=== PATIENT | male | born 1980 | race Caucasian/White ===

== ENCOUNTER 2017-12-19 17:03 | Emergency (ER) | payer MEDICAID ==
[2017-12-19 17:33] LABS: ADD MAN DIFF? NO
[2017-12-19 17:35] LABS: BASOPHIL # 0.1 10^3/ul (0.0-0.1); BASOPHILS % 1.1 % (0.0-2.0); EOSINOPHILS # 0.5 10^3/ul (0.0-0.5); EOSINOPHILS % 7.1 % (0.0-7.0); HEMATOCRIT 41.6 % (42.0-52.0); LYMPHOCYTES % 30.6 % (15.0-51.0); MEAN CORPUSCULAR HEMOGLOBIN 31.6 pg (29.0-33.0); MEAN CORPUSCULAR HGB CONC 36.1 g/dl (32.0-37.0); MEAN CORPUSCULAR VOLUME 87.6 fl (82.0-101.0); MEAN PLATELET VOLUME 9.7 fl (7.4-10.4); MONOCYTE # 0.5 10^3/ul (0.3-0.9); MONOCYTES % 7.4 % (0.0-11.0); NEUTROPHIL # 3.6 10^3/ul (1.6-7.5); NEUTROPHILS % 53.6 % (39.0-77.0); PLATELET COUNT 228 10^3/UL (140-415); RED BLOOD COUNT 4.75 10^6/ul (4.70-6.10); RED CELL DISTRIBUTION WIDTH 12.3 % (11.5-14.5)
[2017-12-19 17:35] LABS: WHITE BLOOD COUNT 6.7 10^3/ul (4.8-10.8)
[2017-12-19 17:37] LABS: PROTIME 12.2 Sec (11.9-14.9)
[2017-12-19 17:39] LABS: PARTIAL THROMBOPLASTIN TIME 32.2 Sec (23.0-35.0)
[2017-12-19 17:43] LABS: ANION GAP 14 (8-16); BLOOD UREA NITROGEN 18 mg/dl (7-20); CALCIUM 9.6 mg/dl (8.4-10.2); CARBON DIOXIDE 27 mmol/L (21-31); CHLORIDE 107 mmol/L (97-110); CREATININE 1.04 mg/dl (0.61-1.24); GLUCOSE 112 mg/dl (70-220); POTASSIUM 3.8 mmol/L (3.5-5.1); SODIUM 144 mmol/L (135-144)
[2017-12-19] MEDS: morphine 2 MG INJ IV (18:42)
[2017-12-19] MEDS: ONDANSETRON 4 MG INJ IV (18:42)
[2017-12-19] MEDS: KETOROLAC 30 MG INJ IV (19:14)
[2017-12-19] MEDS: DIPHTH/TET/ACEL PERTUSS (ADULT) 0.5 ML VIAL IM* (19:36)
== END 2017-12-19 19:25 | disposition home or self-care (01) ==
LOC: E/R 17:03
DX: S71.112A Laceration without foreign body, left thigh, initial encounter (principal); R40.2142 Coma scale, eyes open, spontaneous, at arrival to emergency department; R40.2252 Coma scale, best verbal response, oriented, at arrival to emergency department; R40.2362 Coma scale, best motor response, obeys commands, at arrival to emergency department; M79.605 Pain in left leg; W26.0XXA Contact with knife, initial encounter; Y92.9 Unspecified place or not applicable
CPT/HCPCS: 12002; 36415; 73560; 80048; 85025; 85610; 85730; 86850; 86900; 86901; 90715; 96374; 99291-25

== ENCOUNTER 2017-12-31 08:34 | Emergency (ER) | payer MEDICAID | END 2017-12-31 09:50 | disposition home or self-care (01) | LOC: FTE 08:34 | DX: Z48.01 Encounter for change or removal of surgical wound dressing (principal); R40.2412 Glasgow coma scale score 13-15, at arrival to emergency department; Z48.02 Encounter for removal of sutures | CPT/HCPCS: 99283 ==

== ENCOUNTER 2018-01-07 11:41 | Emergency (ER) | payer MEDICAID | END 2018-01-07 13:24 | disposition home or self-care (01) | LOC: FTE 11:41 | DX: S80.12XA Contusion of left lower leg, initial encounter (principal); X58.XXXA Exposure to other specified factors, initial encounter; Y92.9 Unspecified place or not applicable | CPT/HCPCS: 10060; 99282-25 ==